=== PATIENT | male | born 1965 | race Caucasian/White ===

== ENCOUNTER 2023-01-26 18:37 | Emergency (ER) | payer OTHER ==
[~2023-01-26] VITALS: Ht 162 cm; Wt 122.0 kg
[2023-01-26 18:45] VITALS: BP 157/99
--- NOTE | 2023-01-26 20:48 | ED Lower Extremity ---
General Chief Complaint: Lower Extremity Stated Complaint: RIGHT KNEE PAIN/SWELLING Nursing Triage Note: PT AMB TO TRIAGE W CRUTCHES, PT STATES STEP OUT OF TRUCK, KNEE GAVE OUT TEARING SOUND NOTED. HAPPEND APPROX 4 HOURS. PT STATES BECOMING SWOLLEN AND MORE PAINFUL RATES PAIN 9/10 WHEN STANDS. PT WAS SEEN BY TAPAN BARDALES AND RECIEVED A CORTISONE INJECTION IN R KNEE AND IN R THUMB PRIOR TO FALLING Source: patient Exam Limitations: no limitations History of Present Illness Date Seen by Provider: Jan 26, 2023 Time Seen by Provider: 20:33 Initial Comments 57-year-old male presents to the ER with complaints of right knee pain. He states that today he was getting out of his truck and he twisted his knee and felt a crunching tear in his inner knee. He states the knee and leg instantly swelled. He states that this morning he saw Puma Bardales, orthopedic RN FLOAT, who gave him a cortisone injection in that knee. He was supposed to take it easy and then do PT. Allergies and Home Medications Allergies Coded Allergies: No Known Drug Allergies (Unverified , 01/26/23) Patient Home Medication List Home Medication List Reviewed: Yes Review of Systems Constitutional: no symptoms reported Musculoskeletal: joint pain, joint swelling Past Ydpojbk-Pfguod-Fyrwln Hx Patient Social History Tobacco Use?: No Substance use?: No Alcohol Use?: Yes Alcohol type: Beer Alcohol Frequency: Once in a while Pt feels they are or have been: No Immunizations Up To Date First/Initial COVID19 Vaccinat: YES Second COVID19 Vaccination Dung: YES Past Medical History Surgery/Hospitalization HX: APPY, GANGLION CYST IN [facility] Physical Exam Vital Signs Vital Signs - First Documented 01/26/23 18:45 Temp 36.9 Pulse 110 Resp 16 B/P (MAP) 157/99 (118) Pulse Ox 95 Capillary Refill : Less Than 3 Seconds Height, Weight, BMI Height: '" Weight: lbs. oz. kg; 46.00 BMI Method: General Appearance: WD/WN, no apparent distress Neck: supple, normal inspection Cardiovascular: regular rate, rhythm Respiratory: lungs clear, normal breath sounds, no respiratory distress, no accessory muscle use Legs: right leg swelling (Mild swelling, no pain in leg, pain is only located in inner knee, no erythema) Knees: right knee pain, right knee soft tissue tenderness, right knee swelling Feet: right foot swelling (Mild swelling of left foot, no pain), right foot other (Sensation intact distally, cap refill less than 2 seconds, pulses intact) Neurologic/Psychiatric: alert, normal mood/affect Skin: normal color, warm/dry Progress/Results/Core Measures Results/Orders My Orders Orders - RAHEL JESUS APRN Knee Immobilizer (01/26/23 20:42) Migel Bandage (01/26/23 20:58) Vital Signs/I&O 01/26/23 18:45 Temp 36.9 Pulse 110 Resp 16 B/P (MAP) 157/99 (118) Pulse Ox 95 Blood Pressure Mean: 118 Progress Progress Note : Progress Note Patient seen and evaluated, resting comfortably in recliner, no acute distress. Based on exam and symptoms, I considered a x-ray of the right knee, deferred due to no bone pain. Pain is located in inner knee along ligament. Will place patient in knee immobilizer if we have one that will fit, otherwise will give Migel bandage. Patient already has crutches. Patient instructed to follow-up with orthopedics. He states that he has already called them and they are aware of the injury. Discharge instructions and return precautions provided. Departure Impression Primary Impression: Knee sprain Qualified Codes: S83.91XA - Sprain of unspecified site of right knee, initial encounter Disposition: HOME, SELF-CARE Condition: Stable Departure-Patient Inst. Decision time for Depature: 20:47 Referrals: NO,LOCAL PHYSICIAN (PCP/Family) Primary Care Physician Patient Instructions: Knee Sprain (DC) Add. Discharge Instructions: Use the crutches to keep weight off of your leg. Wear the Migel bandage for support. Follow-up with orthopedics. Return for severe pain, numbness or tingling in the foot, or any other new, concerning, or worsening symptoms. All discharge instructions reviewed with patient and/or family. Voiced understanding. RAHEL JESUS APRN Jan 26, 2023 20:48
== END 2023-01-26 21:09 | disposition home or self-care (01) ==
LOC: ER 18:41
DX: S83.91XA Sprain of unspecified site of right knee, initial encounter (principal); M79.89 Other specified soft tissue disorders; X50.1XXA Overexertion from prolonged static or awkward postures, initial encounter
CPT/HCPCS: 99281

== ENCOUNTER 2023-04-27 06:56 | Day surgery (SDC) | payer OTHER ==
[~2023-04-27] VITALS: Ht 162 cm; Wt 124.0 kg
[2023-04-27] VITALS (9 sets, daily range): BP systolic 137–175; BP diastolic 88–110
[2023-04-27] MEDS ORDERED: NS IV 1000 ML 1,000 ML IV STA (07:20)
--- NOTE | 2023-04-27 07:44 | ED GI ---
General Chief Complaint: Abdominal/GI Problems Stated Complaint: VOMITING Nursing Triage Note: ARRIVED VIA AMB WITH COMPLAINTS OF A GI SPASM THAT HAS LASTED FOR OVER 12 HOURS. HX OF SPASMS STARTING X4 YEARS AGO AND STATES THEY USUALLY GO AWAY BUT THIS TIME IT IS NOT. Source of Information: Patient Exam Limitations: No Limitations History of Present Illness Date Seen by Provider: Apr 27, 2023 Time Seen by Provider: 07:15 Initial Comments Here with report of esophageal spasms and inability to swallow anything since last night. States that he was eating steak and salad at the time of the incident. He had had a couple bites of steak and then was trying to eat the salad when he felt the spasm and could not get anything down. He did vomit the let us eventually. He has history of esophageal spasms and usually is able to break that with drinking warm water. He tried that but that did not work. States that he is vomiting up bile but actually describes it as clear fluid which may just be saliva. Tried eating just a little bit of banana bread a couple hours ago and that did not go down. He has had previous scopes in those of been okay except for noting spasms. Denies recent illness, fever, chills or pain otherwise. Timing/Duration: 12 Hours Severity/Quality: Moderate Location: Epigastric, Other (Esophageal) Radiation: No Radiation Activities at Onset: None Modifying Factors: Worsens With Eating; Improves With Vomiting Associated Symptoms: No Fever/Chills, No Shortness of Air Allergies and Home Medications Allergies Coded Allergies: No Known Drug Allergies (Unverified , 01/26/23) Patient Home Medication List Home Medication List Reviewed: Yes Review of Systems Review of Systems Constitutional: No chills, No fever EENTM: No Symptoms Reported Respiratory: Denies Cough, Denies Shortness of Air Cardiovascular: Denies Chest Pain Gastrointestinal: See HPI, Vomiting, Other (Hiccups) Musculoskeletal: no symptoms reported Psychiatric/Neurological: No Symptoms Reported Past Ihmxarf-Vpzllg-Alagdn Hx Patient Social History Tobacco Use?: No Substance use?: No Alcohol Use?: Yes Alcohol type: Beer Alcohol Frequency: Couple times a week Immunizations Up To Date First/Initial COVID19 Vaccinat: YES Second COVID19 Vaccination Dung: YES Past Medical History Surgery/Hospitalization HX: APPY, GANGLION CYST IN [facility] Surgeries: Yes Appendectomy, Orthopedic Respiratory: No Cardiac: No Neurological: No Genitourinary: No Gastrointestinal: Yes (Esophageal spasms) Family Medical History Reviewed Nursing Family Hx Physical Exam Vital Signs Vital Signs - First Documented 04/27/23 07:00 Temp 37.1 Pulse 92 Resp 16 B/P (MAP) 153/102 (119) Pulse Ox 94 O2 Delivery Room Air Capillary Refill : Less Than 3 Seconds Height/Weight/BMI Height: '" Weight: lbs. oz. kg; 47.00 BMI Method: General Appearance: WD/WN, no apparent distress Neck: full range of motion, supple Respiratory: lungs clear, normal breath sounds Cardiovascular: regular rate, rhythm, no murmur Gastrointestinal: non tender, soft Neurologic/Psychiatric: alert, oriented x 3 Skin: normal color, warm/dry Progress/Results/Core Measures Results/Orders Lab Results Laboratory Tests Test 04/27/23 07:35 Range/Units White Blood Count 8.4 4.3-11.0 10^3/uL Red Blood Count 5.22 4.30-5.52 10^6/uL Hemoglobin 17.3 13.3-17.7 g/dL Hematocrit 49 40-54 % Mean Corpuscular Volume 94 80-99 fL Mean Corpuscular Hemoglobin 33 25-34 pg Mean Corpuscular Hemoglobin Concent 35 32-36 g/dL Red Cell Distribution Width 12.1 10.0-14.5 % Platelet Count 244 130-400 10^3/uL Mean Platelet Volume 8.8 L 9.0-12.2 fL Immature Granulocyte % (Auto) 0 % Neutrophils (%) (Auto) 75 42-75 % Lymphocytes (%) (Auto) 16 12-44 % Monocytes (%) (Auto) 7 0-12 % Eosinophils (%) (Auto) 1 0-10 % Basophils (%) (Auto) 0 0-10 % Neutrophils # (Auto) 6.3 1.8-7.8 10^3/uL Lymphocytes # (Auto) 1.3 1.0-4.0 10^3/uL Monocytes # (Auto) 0.6 0.0-1.0 10^3/uL Eosinophils # (Auto) 0.1 0.0-0.3 10^3/uL Basophils # (Auto) 0.0 0.0-0.1 10^3/uL Immature Granulocyte # (Auto) 0.0 0.0-0.1 10^3/uL Sodium Level 137 135-145 MMOL/L Potassium Level 3.9 3.6-5.0 MMOL/L Chloride Level 104 98-107 MMOL/L Carbon Dioxide Level 21 21-32 MMOL/L Anion Gap 12 5-14 MMOL/L Blood Urea Nitrogen 22 H 7-18 MG/DL Creatinine 0.81 0.60-1.30 MG/DL Estimat Glomerular Filtration Rate 102 BUN/Creatinine Ratio 27 Glucose Level 122 H 70-105 MG/DL Calcium Level 9.3 8.5-10.1 MG/DL Corrected Calcium 8.5-10.1 MG/DL Total Bilirubin 0.8 0.1-1.0 MG/DL Aspartate Amino Transf (AST/SGOT) 42 H 5-34 U/L Alanine Aminotransferase (ALT/SGPT) 89 H 0-55 U/L Alkaline Phosphatase 91 40-136 U/L Total Protein 8.0 6.4-8.2 GM/DL Albumin 4.6 H 3.2-4.5 GM/DL My Orders Orders - ARIANNE VIVAR MD Ns Iv 1000 Ml (Ns Iv 1000 Ml) (04/27/23 07:20) Ed Iv/Invasive Line Start (04/27/23 07:20) Cbc With Automated Diff (04/27/23 07:20) Comprehensive Metabolic Panel (04/27/23 07:20) Fentanyl Injection (Fentanyl Injection (04/27/23 07:53) Vital Signs/I&O 04/27/23 07:00 Temp 37.1 Pulse 92 Resp 16 B/P (MAP) 153/102 (119) Pulse Ox 94 O2 Delivery Room Air Blood Pressure Mean: 119 Progress Progress Note : Progress Note Seen and evaluated. History consistent with esophageal obstruction most likely from the steak. I did discuss the case with Dr. Franklin, surgeon on-call. We will try administering small amount of Coca-Cola and try to have him hold that see if that will help reduce the obstruction per Dr. Franklin's instructions. I have also initiated IV and we will check basic labs and give normal saline 1 L bolus. If the attempt at the Coca-Cola does not work, he will likely need to go to endoscopy suite and Dr. Franklin is willing to do that. He is starting a case now and will check back when that is done. Monitor patient. Differential diagnosis includes esophageal spasm versus esophageal food bolus. 0754: We tried the Coca-Cola therapy and that failed. He is unable to keep it down for very long and it just comes right back up. He is having some pain with this I will give him fentanyl 50 mcg IV. I did discuss the case with Dr. Franklin and he will go ahead and take him to the endoscopy suite as soon as that is open. Discussed with the patient who agrees. 1011: Patient has not passed any bolus yet. Is going to endoscopy suite now. They will discharge him from there. Departure Communication (Admissions) Time/Spoke to Admitting Phy: 07:54 Impression Primary Impression: Esophageal obstruction due to food impaction Disposition: ADMITTED INPATIENT Condition: Stable Admissions Decision to Admit Reason: Admit from ER (General) Decision to Admit/Date: Apr 27, 2023 Time/Decision to Admit Time: 07:54 Departure-Patient Inst. Referrals: NO,LOCAL PHYSICIAN (PCP/Family) Primary Care Physician ARIANNE VIVAR MD Apr 27, 2023 07:44
[2023-04-27] MEDS ORDERED: fentaNYL INJECTION 100 MCG/2 ML VIAL IVP STA (07:53)
[2023-04-27 08:09] LABS: BASOPHILS % (AUTO) 0 % (0-10); EOSINOPHILS # (AUTO) 0.1 10^3/uL (0.0-0.3); EOSINOPHILS % (AUTO) 1 % (0-10); HEMATOCRIT 49 % (40-54); HEMOGLOBIN 17.3 g/dL (13.3-17.7); LYMPHOCYTES # (AUTO) 1.3 10^3/uL (1.0-4.0); LYMPHOCYTES % (AUTO) 16 % (12-44); MEAN CORPUSCULAR HEMOGLOBIN 33 pg (25-34); MEAN CORPUSCULAR HGB CONC 35 g/dL (32-36); MEAN CORPUSCULAR VOLUME 94 fL (80-99); MEAN PLATELET VOLUME 8.8 fL (9.0-12.2); MONOCYTES # (AUTO) 0.6 10^3/uL (0.0-1.0); MONOCYTES % (AUTO) 7 % (0-12); NEUTROPHILS # (AUTO) 6.3 10^3/uL (1.8-7.8); NEUTROPHILS % (AUTO) 75 % (42-75); PLATELET COUNT 244 10^3/uL (130-400); WHITE BLOOD COUNT 8.4 10^3/uL (4.3-11.0)
--- NOTE | 2023-04-27 08:17 | Consultation - Surgery ---
JOSE JOHNSON 04/27/2317: History of Present Illness History of Present Illness Patient Consulted On(lorraine/time) 04/27/23 08:06 Date Seen by Provider: Apr 27, 2023 Time Seen by Provider: 08:06 Reason for Visit: Vomiting clear mucous since eating at 6pm yesterday History of Present Illness Pt says at 6:00 oclock last night, he was eating salad and a steak. He then started feeling a familiar sensation of an urge to vomit. Pt states he suspects it was the salad that triggered it. Pt states the sensation is to the left of his tika's apple. Pt states he has had esophageal spasms several times over the last 4 years. It's a sixth sense there's a spasm coming on, a tightening of the throat. And with that a sensation of vomiting occurs and then a clear heavy mucous comes up. Pt cannot tell if it is something stuck or a spasm. Normally stops 15 minutes to 2 hours later, but this one continued through the night. He says he is a stomach sleeper but that was aggravating his issue, so he went into his recliner and it felt better but still had the urge to burp or vomit, and he continued cycling between sleeping on his stomach, having more issues, going to his recliner, feeling better, repeat throughout the night. Pt has been given fentanyl in the ER and says what he suspects is an esophageal spasm feels better but not cured, but he was given nitro pills on a flight when a similar incident occurred and that seemed to cure him at the time. Pt says he had an EGD last fall. Pt says he has never had an episode last this long. He saw ENT to try and figure out what was going on last fall, and they scoped and saw nothing abnormal, so they referred him for an EGD, and they found ulcers, does not know if he's ever had a manometry performed; pt got the idea about spasms because he says the doctor who did the EGD in [place] told him that was probably what was going on, but he did not have a spasm during the EGD for the doctor to confirm. Pt states the pain before Fentanyl administration was 8/10 and now it's a 3- 4/10. Pt tried eating a piece of bread the size of a finger nail at 4:00 a.m. this morning but it came back up. Pt had warm water at 9:00 oclock last night and vomited that up also. Pt was given a coca cola 30 minutes ago in the ER. Patient has had a BM and been able to urinate, notes there was no unusual color or texture to either. Pt has vomited in my presence and no food came up, only what appears to be mucous and coca cola. As of 9:15 a.m., pt states this is the first time he has had a 20-minute period of no vomiting since the incident started. He is hesitant to say it is completely resolved due to the fluctuating nature of his sx. Pt says he would still like an EGD for answers and confirmation that there are no issues. Allergies and Home Medications Allergies Coded Allergies: No Known Drug Allergies (Unverified , 01/26/23) Patient Home Medication List Home Medication List Reviewed: Yes Past Lrhdggv-Jdbolw-Wzrhjm Hx Patient Social History Number of Drinks Today: 0 Smoking Status: Former Smoker (Chewed tobacco for 15-20 years before going through a [facility] rehab program and quitting) Former Smoker, Quit: Apr 27, 2003 (estimate) Type Used: Smokeless Tobacco 2nd Hand Smoke Exposure: No Recent Hopitalizations: No (Outpatient torn meniscus repair 02/28/2023) Alcohol Use?: Yes (Beer 1-2x per week) Have you traveled recently?: No Surgeries History of Surgeries: Yes Surgeries: Appendectomy (1985), Orthopedic (meniscus repair february 28 2023, ganglion cyst removal) Respiratory History of Respiratory Disorde: No Cardiovascular History of Cardiac Disorders: No Neurological History of Neurological Disord: No Genitourinary History of Genitourinary Disor: No Gastrointestinal History of Gastrointestinal Di: Yes (Esophageal spasms, no food ever stuck that he knows of) Musculoskeletal History of Musculoskeletal Dis: Yes (meniscus issues) Endocrine History of Endocrine Disorders: No HEENT History of HEENT Disorders: No Cancer History of Cancer: No Psychosocial History of Psychiatric Problem: No Integumentary History of Skin or Integumenta: Yes (ganglion cyst) Blood Transfusions History of Blood Disorders: No Family Medical History Significant Family History: Heart Disease (Dad and brother), Cancer (Dad, large cell lung cancer), CAD Over 55 Years Old (Dad and brother) Review of Systems-General Constitutional: No dizziness, No fever, No weight gain, No weight loss EENTM: throat pain (left of the tika's apple); No vision loss Respiratory: phlegm (clear heavy mucous upon vomiting), short of breath (minimal since 6pm yesterday) Cardiovascular: No chest pain, No palpitations Gastrointestinal: No RUQ, No LUQ, No RLQ, No LLQ, No abdominal pain, No constipation, No diarrhea; dysphagia (since 6pm yesterday); No hematemesis, No heartburn; vomiting (of clear heavy mucous since 6pm yesterday) Genitourinary: No dysuria, No hematuria Musculoskeletal: No back pain, No joint pain Skin: No change in color, No lesions, No lumps Psychiatric/Neurological: Denies Anxiety, Denies Depressed Physical Exam-General Problems Physical Exam Vital Signs Vital Signs - First Documented 04/27/23 07:00 Temp 37.1 Pulse 92 Resp 16 B/P (MAP) 153/102 (119) Pulse Ox 94 O2 Delivery Room Air Capillary Refill : Less Than 3 Seconds General Appearance: mild distress (on fentanyl but have seen him vomit, no food came up) Neck: non-tender, supple, normal inspection (hard to visualize with wang) Respiratory: chest non-tender, lungs clear, normal breath sounds, no r espiratory distress, no accessory muscle use Cardiovascular: regular rate, rhythm, no gallop, no murmur Peripheral Pulses: 2+ Carotid (R), 2+ Carotid (L), 2+ Dorsalis Pedis (R), 2+ Left Dors-Pedis (L), 2+ Radial Pulses (R), 2+ Radial Pulses (L) Gastrointestinal: non tender, soft, no organomegaly, no pulsatile mass Skin: normal color, warm/dry (left foot slightly cooler to the touch when checking dorsalis pedis pulse) Assessment/Plan Assessment/Plan Admission Diagonsis Vomiting clear mucous since eating at 6pm yesterday Assessment/Plan Persistent esophageal spasm or food bolus impaction - NPO for EGD to r/o food bolus, manometry if needed afterwards, refer to GI for long-term management HTN - refer to ict quality assurance engineer for HTN management if it persists beyond this episode JHON LI DO 04/27/23 1025: History of Present Illness History of Present Illness Time Seen by Provider: 10:13 History of Present Illness Surgery asked to consult regarding possible food bolus. HPI per ED: Here with report of esophageal spasms and inability to swallow anything since last night. States that he was eating steak and salad at the time of the incident. He had had a couple bites of steak and then was trying to eat the salad when he felt the spasm and could not get anything down. He did vomit the let us eventually. He has history of esophageal spasms and usually is able to break that with drinking warm water. He tried that but that did not work. States that he is vomiting up bile but actually describes it as clear fluid which may just be saliva. Tried eating just a little bit of banana bread a couple hours ago and that did not go down. He has had previous scopes in those of been okay except for noting spasms. Denies recent illness, fever, chills or pain otherwise. Timing/Duration: 12 Hours Severity/Quality: Moderate Location: Epigastric, Other (Esophageal) Radiation: No Radiation Activities at Onset: None Modifying Factors: Worsens With Eating; Improves With Vomiting Associated Symptoms: No Fever/Chills, No Shortness of Air When I saw pt he was still spitting stuff up and did not think anything had passed. Allergies and Home Medications Allergies Coded Allergies: No Known Drug Allergies (Unverified , 01/26/23) Patient Home Medication List Home Medication List Reviewed: Yes Past Cdpolre-Vtbwgj-Cgubxh Hx Patient Social History Smoking Status: Former Smoker (Chewed tobacco for 15-20 years before going through a [facility] rehab program and quitting) Type Used: Smokeless Tobacco 2nd Hand Smoke Exposure: No Recent Hopitalizations: No (Outpatient torn meniscus repair 02/28/2023) Alcohol Use?: Yes (Beer 1-2x per week) Have you traveled recently?: No Surgeries History of Surgeries: Yes Surgeries: Appendectomy (1985), Orthopedic (meniscus repair february 28 2023, ganglion cyst removal) Respiratory History of Respiratory Disorde: No Cardiovascular History of Cardiac Disorders: No Neurological History of Neurological Disord: No Genitourinary History of Genitourinary Disor: No Gastrointestinal History of Gastrointestinal Di: Yes (Esophageal spasms, no food ever stuck that he knows of) Musculoskeletal History of Musculoskeletal Dis: Yes (meniscus issues) Endocrine History of Endocrine Disorders: No HEENT History of HEENT Disorders: No Cancer History of Cancer: No Psychosocial History of Psychiatric Problem: No Integumentary History of Skin or Integumenta: Yes (ganglion cyst) Blood Transfusions History of Blood Disorders: No Family Medical History Significant Family History: Heart Disease (Dad and brother), Cancer (Dad, large cell lung cancer), CAD Over 55 Years Old (Dad and brother) Review of Systems-General Constitutional: No dizziness, No fever, No weight gain, No weight loss EENTM: throat pain (left of the tika's apple), throat swelling; No vision loss Respiratory: phlegm (clear heavy mucous upon vomiting), short of breath (minimal since 6pm yesterday) Cardiovascular: No chest pain, No palpitations Gastrointestinal: No abdominal pain; dysphagia (since 6pm yesterday); No hematemesis; nausea, vomiting (of clear heavy mucous since 6pm yesterday) Genitourinary: No dysuria, No hematuria Musculoskeletal: No back pain, No joint pain Skin: No change in color, No lesions, No lumps Psychiatric/Neurological: Denies Anxiety, Denies Depressed Physical Exam-General Problems Physical Exam General Appearance: mild distress (on fentanyl but have seen him vomit, no food came up), obese Eyes: Bilateral Eye PERRL, Bilateral Eye EOMI HEENT: pharynx normal; No scleral icterus (R), No scleral icterus (L) Neck: non-tender, supple Respiratory: chest non-tender, lungs clear, normal breath sounds, no respiratory distress, no accessory muscle use Cardiovascular: regular rate, rhythm, no murmur Gastrointestinal: non tender, soft, no organomegaly, no pulsatile mass Rectal: deferred Back: no CVA tenderness, no vertebral tenderness Extremities: no pedal edema, no calf tenderness Neurologic/Psychiatric: pilot captain II-XII nml as tested, alert, oriented x 3 Skin: normal color, warm/dry (left foot slightly cooler to the touch when checking dorsalis pedis pulse) Lymphatic: no adenopathy (neck, axilla or groin) Assessment/Plan Assessment/Plan Assessment/Plan Dysphagia - probable food bolus HTN - monitor and f/u with primary care Plan is EGD with possible removal of food bolus, possible biopsy. Discussed with pt risks and complications not limited to pain, bleeding, infection and even esophageal perforation. All questions answered to his satisfaction. Supervisory-Addendum Brief Verification & Attestation Participated in pt care: history, MDM, physical Personally performed: exam, history, MDM, supervision of care Care discussed with: Medical Student Procedures: n/a Verification and Attestation of Medical Student E/M Service A medical student performed and documented this service. I then reviewed and verified all information documented by the medical student and made modifications to such information, when appropriate. I personally performed a physical exam, medical decision making and then discussed any differences between the notes and made revisions as necessary to create one note. Jhon Li , 04/27/23 , 10:25 JOSE JOHNSON Apr 27, 2023 08:17 JHON LI DO Apr 27, 2023 10:25
[2023-04-27 08:45] LABS: ALBUMIN 4.6 GM/DL (3.2-4.5)
[2023-04-27 08:46] LABS: CHLORIDE 104 MMOL/L (98-107); POTASSIUM 3.9 MMOL/L (3.6-5.0); SODIUM 137 MMOL/L (135-145)
[2023-04-27 08:47] LABS: CALCIUM 9.3 MG/DL (8.5-10.1)
[2023-04-27 08:48] LABS: GLUCOSE 122 MG/DL (70-105)
[2023-04-27 08:49] LABS: CARBON DIOXIDE 21 MMOL/L (21-32)
[2023-04-27 08:50] LABS: BILIRUBIN,TOTAL 0.8 MG/DL (0.1-1.0)
[2023-04-27 08:51] LABS: ALKALINE PHOSPHATASE 91 U/L (40-136)
[2023-04-27 08:52] LABS: CREATININE SERUM 0.81 MG/DL (0.60-1.30); GFR ESTIMATED 102
[2023-04-27 08:53] LABS: BUN/CREATININE RATIO 27
[2023-04-27 08:55] LABS: ALANINE AMINOTRANSFERASE 89 U/L (0-55)
[2023-04-27] MEDS ORDERED: LACTATED RINGERS 1,000 ML 1,000 ML IV PRN (10:15)
[2023-04-27] MEDS ORDERED: ONDANSETRON INJECTION 4 MG/2 ML (SDV) ONE (10:19)
[2023-04-27] MEDS ORDERED: MIDAZOLAM INJ 2 MG/2 ML VIAL ONE (10:19)
[2023-04-27] MEDS ORDERED: LIDOCAINE PF 2% 5 ML VIAL ONE (10:19)
[2023-04-27] MEDS ORDERED: dexAMETHasone INJ 10 MG/ML 1 ML VIAL ONE (10:19)
[2023-04-27] MEDS ORDERED: fentaNYL INJECTION 100 MCG/2 ML VIAL ONE (10:19)
[2023-04-27] MEDS ORDERED: proPOfol INJECTION 200 MG/20 ML VIAL IV ONE (10:19)
[2023-04-27] MEDS ORDERED: SUCCINYLCHOLINE INJ 20 MG/1 ML 10 ML VIAL ONE (10:20)
[2023-04-27] MEDS ORDERED: PHENYLEPHRINE 100 MCG/ML 10 ML (ANESTHESIA) SYR ONE (10:54)
[2023-04-27] MEDS ORDERED: GLUCAGON EMERGENCY 1 MG/KIT ONE (11:30)
[2023-04-27] MEDS ORDERED: SEVOFLURANE (ULTANE) 15 ML INHAL SOLN ONE (11:56)
--- NOTE | 2023-04-27 12:05 | Progress Note-Post Operative ---
Post-Operative Progess Note Surgeon (s)/[employer] Articles (s) Surgeon JHON LI DO [employer]: none Pre-Operative Diagnosis Dysphagia, possible food bolus Post-Operative Diagnosis Food bolus Duodenitis Esophagitis Gastritis Hiatal hernia Procedure & Operative Findings Date of Procedure 04/27/23 Procedure Performed/Findings EGD with removal of food bolus EGD with biopsy PROCEDURE NOTE: After informed consent was obtained, the patient was brought to the endoscopy suite, placed in bed in left lateral decubitus position. He was intubated with endotracheal tube by anesthiologist and then monitored vitals the entire time, heart rate, blood pressure and pulse ox and the scope was inserted down the mouth and through the esophagus. Found a large pieces of meat about 50cm down, could not get past it. I then spent an hour trying to use the dia net and suction cup on the end of the scope to try and remove the piece of food. I was able to get out a few small pieces but could never get the entire piece out. I even used the biopsy forceps to try and "chew" the piece of meat to either get it out or push it into stomach. Finally, had anesthesia give the pt some Glucagon and I placed Coca-Cola through scope at food. Head of the bed was elevated and gave it 10 minutes to see if it would soften up the food bolus. into the stomach. I then was able to gently push the softened piece of food into the stomach. I pushed into the stomach, pushed past the antrum and into the duodenum. Duodenum looked bad, lots of ulcers, almost a severe duodenitis. I elected to do two biopsies here. I then pulled back and did a biopsy of theantrum, then retroflexed the scope, saw small hiatal hernia and old blood at the GE junction. I took a picture of this and then pulled the scope into the GE junction, where it looked like severe esophagits and then did a biopsy of the GE junction. Pushed the scope back into the stomach, suctioned all the air out of the stomach. At this point pulled the scope up the esophagus and out the mouth. The patient tolerated the procedure, and he recovered in endoscopy suite. Anesthesia Type GET Estimated Blood Loss Estimated blood loss (mL): scant Specimens/Packing Specimens Removed duodenal bx Antral bx biopsy of body of stomach GE jxn bx JHON LI DO Apr 27, 2023 12:05
--- NOTE | 2023-04-27 12:07 | Anesthesia-General Post-Op ---
General Patient Condition Mental Status/LOC: Same as Preop Cardiovascular: Satisfactory Nausea/Vomiting: Absent Respiratory: Satisfactory Pain: Controlled Complications: Absent Post Op Complications Complications None Follow Up Care/Instructions Patient Instructions None needed. Anesthesia/Patient Condition Patient Condition Patient is awake in PACU and doing well, no complaints, stable vital signs, no apparent adverse anesthesia problems. No complications reported per nursing. RAMÓN SUMMERS DO Apr 27, 2023 12:07
--- NOTE | 2023-04-27 12:07 | Endoscopy Discharge Instruct ---
Endo Procedure/Findings Findings Procedure/Findings Food bolus 1.: Duodenal Ulcer 2.: Gastritis 3.: Hiatal Hernia 4.: Other Findings (Esophagitis) Discharge Instructions - Activity: You might feel a little sleepy until tomorrow. This is due to the medicine you received to relax you. Until tomorrow, you should: NOT drive a car, operate machinery or power tools. NOT drink any alcoholic beverages. NOT make any important decisions or sign importortant papers. Do not return to work until tomorrow, unless otherwise instructed. Resume previous activities tomorrow. Diet: Liquid diet for the next week, until you see me in the office. Notify Physician - If you experience excessive bleeding, unusual abdominal pain, fever, or chest pain, contact your doctor immediately. Follow-Up: Other Follow up in my office in a week JHON LI DO Apr 27, 2023 12:07
[2023-04-27] MEDS ORDERED: SUCR1TAB36 PO (12:08)
[2023-04-27] MEDS ORDERED: PANT40TA2 PO (12:08)
[2023-04-27] MEDS ORDERED: morphine INJ 10 MG/ML 1ML (SYR OR VIAL) IVP ONE (12:15)
[2023-04-27] MEDS ORDERED: ONDANSETRON INJECTION 4 MG/2 ML (SDV) IVP PRN (12:15)
== END 2023-04-27 13:30 ==
LOC: EDUNIT# 06:56 → ER 06:58 → SDC 10:10
PROVIDERS: ATTEND Surgery
DX: T18.128A Food in esophagus causing other injury, initial encounter (principal); K29.80 Duodenitis without bleeding; K20.90 Esophagitis, unspecified without bleeding; K29.70 Gastritis, unspecified, without bleeding; K44.9 Diaphragmatic hernia without obstruction or gangrene; I10 Essential (primary) hypertension; K31.89 Other diseases of stomach and duodenum; Z87.891 Personal history of nicotine dependence
CPT/HCPCS: 36415; 80053; 85025; 96374